=== PATIENT | female | born 1950 | race Two or more races ===

== ENCOUNTER 2024-07-10 07:05 | Day surgery (SDC) | payer OTHER ==
[2024-07-09 11:19] VITALS: BP 150/76
[2024-07-09 12:01] LABS: COVID-19 AG NEGATIVE (NEGATIVE)
[~2024-07-10] VITALS: Ht 154.9 cm; Wt 62.1 kg
[~2024-07-10 07:05] MED LIST: COZAAR100 MG PO; FARXIGA10 MG PO; HORIZANT300 MG PO; LIPITOR20 MG PO; METFORMIN HCL750 MG PO; ZETIA10 MG PO
[2024-07-10] MEDS ORDERED: CEFAZOLIN SODIUM 1,000 MG VIAL ONE (12:28)
[2024-07-10] MEDS ORDERED: MORPHINE SULFATE 4 MG/ML VIAL IV ONE (21:15)
== END 2024-07-10 22:10 | disposition home or self-care (01) ==
LOC: CIR.AMB 07:05
PROVIDERS: ATTEND Surgery
DX: D05.12 Intraductal carcinoma in situ of left breast (principal); R59.0 Localized enlarged lymph nodes; D48.62 Neoplasm of uncertain behavior of left breast; I10 Essential (primary) hypertension; E11.9 Type 2 diabetes mellitus without complications; E78.5 Hyperlipidemia, unspecified